=== PATIENT | male | born 1980 | race Caucasian/White ===

== ENCOUNTER 2020-01-01 14:26 | Emergency (ER) | payer OTHER ==
[2020-01-01 14:40] VITALS: BP 110/85
--- NOTE | 2020-01-01 14:40 | NUR ---
PT STATES HE ONLY WANTS TO BE TESTED FOR COVID-19 AND NO FURTHER TESTING TO BE DONE.
--- NOTE | 2020-01-01 14:42 | ED General ---
General Stated Complaint: COUGH;VOMITING;DIARRHEA Source of Information: Patient Exam Limitations: No Limitations History of Present Illness Date Seen by Provider: Jan 01, 2020 Time Seen by Provider: 14:39 Initial Comments To ER with reports of cough vomiting diarrhea. Cough has been present for about 2 weeks, vomiting and diarrhea was yesterday only, it's resolved today. His employer wants him swabbed for coronavirus so he came here. Timing/Duration: 1-2 Days Severity: Moderate Associated Systoms: Denies Symptoms Allergies and Home Medications Patient Home Medication List Home Medication List Reviewed: Yes Review of Systems Review of Systems Constitutional: see HPI EENTM: see HPI Respiratory: no symptoms reported Cardiovascular: no symptoms reported Genitourinary: no symptoms reported Musculoskeletal: no symptoms reported Skin: no symptoms reported Psychiatric/Neurological: No Symptoms Reported Hematologic/Lymphatic: No Symptoms Reported Immunological/Allergic: no symptoms reported Physical Exam Vital Signs Capillary Refill : Height, Weight, BMI Height: '" Weight: lbs. oz. kg; BMI Method: General Appearance: No Apparent Distress, WD/WN Eyes: Bilateral Eye Normal Inspection, Bilateral Eye PERRL, Bilateral Eye EOMI Respiratory: Normal Breath Sounds, No Accessory Muscle Use, No Respiratory Distress Cardiovascular: Normal Peripheral Pulses, Tachycardia Gastrointestinal: Non Tender, Soft Extremity: Normal Capillary Refill, Normal Inspection Neurologic/Psychiatric: Alert, Oriented x3 Skin: Normal Color, Warm/Dry Progress/Results/Core Measures Suspected Sepsis SIRS Temperature: Pulse: Respiratory Rate: Blood Pressure / Mean: Results/Orders My Orders Orders - TYRELL ALMANZAR APRN Coronavirus Sars-Cov-2 So 2018 (01/01/20 14:37) Vital Signs/I&O Capillary Refill : Departure Communication (Admissions) He does have a high heart rate, sinus rhythm narrow complex, rate of 135-140. I did recommend starting an IV for laboratory evaluation with IV fluids but he declines, states he just wants the coronavirus swab and to go home. He states his heart rate is probably just high because he "chugged a monster" before he got here Impression Primary Impression: Cough Additional Impression: Tachycardia Disposition: 01 HOME, SELF-CARE Condition: Stable Departure-Patient Inst. Decision time for Depature: 14:41 Patient Instructions: Tachycardia (DC), Cough, Adult (DC) Add. Discharge Instructions: 1. He will take 24-48 hours to get the coronavirus swab resulted. We'll call you if it's positive. Return to ER for any concerns. Work/School Note: Work Release Form Date Seen in the Emergency Department: Jan 01, 2020 Return to Work: Jan 03, 2020 TYRELL ALMANZAR APRN Jan 01, 2020 14:42
--- NOTE | 2020-01-02 18:41 | NUR ---
PT CALLED FOR SWAB RESULTS. THIS RN CHECKED LAB AND RESULTS ARE NEGATIVE AND PT WAS INFORMED NEG READING.
== END 2020-01-01 14:40 | disposition home or self-care (01) ==
LOC: EDUNIT# 14:26 → ER 14:27
DX: R05 Cough (principal); R00.0 Tachycardia, unspecified; Z20.828 Contact with and (suspected) exposure to other viral communicable diseases
CPT/HCPCS: 99281; U0002; 87635